=== PATIENT | female | born 1950 | race Caucasian/White ===

== ENCOUNTER → 2017-10-01 | Outpatient (CLI) | payer MEDICARE | END | disposition home or self-care (01) | LOC: PCVCCLINIC 15:31 | DX: I10 Essential (primary) hypertension (principal); E78.00 Pure hypercholesterolemia, unspecified; Z87.898 Personal history of other specified conditions; Z79.82 Long term (current) use of aspirin | CPT/HCPCS: 80061; 93005; G0463 ==

== ENCOUNTER → 2018-03-01 | Outpatient (CLI) | payer MEDICARE, OTHER ==
--- NOTE | 2018-03-02 19:22 | PCVCIMAG ---
APPROVED REPORT Study performed: 03/01/2018 11:41:21 Exam: Stress Echocardiogram Indication: Palpitations , CAD , Hypertension, Hyperlipidemia Patient Location: Echo lab Stress Nurse: Myriam Grant RN Room #: 2 Status: routine Ht: 5 ft 2 in HR: 71 bpm BP: 132/82 mmHg Rhythm: NSR Medical History Medical History: CAD non obstructive, HTN Cardiac Risk Factors: HTN Previous Cardiac Procedures: none Pretest Chest Pain Characteristics: No chest pain Exercise History: Physically active Procedure The patient underwent an Exercise Stress Test using the Javier Protocol. Blood pressure, heart rate, and EKG were monitored. An Echocardiogram was performed by solids control technician in four stages in quad fashion. At peak stress, four selected images were obtained and placed side by side with resting images for comparison. Stress Test Details Stress Test: Exercise stress testing was performed using a Javier protocol. HR Resting HR: 71 bpmMax Heart Rate (APMHR): 155 bpm Max HR Achieved: 144 bpmTarget HR (85% APMHR): 131 bpm % of APMHR: 92 Recovery HR: 78 bpm HR response to stress: Normal HR response to stress BP Resting BP: 132/82 mmHg Max BP: 160/82 mmHg Recovery BP: 148/80 mmHg ECG Resting ECG: Sinus Rhythm Stress ECG: Sinus Rhythm ST Change: Non-ischemic Arrhythmia: None Recovery ECG: Sinus Rhythm Recovery ST Change: Non-ischemic Recovery Arrhythmia: None Clinical Reason for Termination: Maximal effort Stress Symptoms: none Exercise duration: 6 min 48 sec Highest Stage Achieved: Stage 3: 3.4 mph at 14% grade. Exercise capacity: 9.4 METs Overall Exercise Capacity for Age: Normal Scale: Active Angina Score: None No complications. Stress ECG Conclusion The patient exercised according to the JAVIER protocol for 6:48 mins; achieving a work level of 9.4 METS. The resting heart rate of 71 bpm soni to a maximum heart rate of 144 bpm. This value % of the maximal, age-predicted heart rate. The resting blood pressure of 132/82mmHg, soni to a maximum blood pressure of 160/82 mmHg. The exercise test was stopped due to fatigue. Pre-Stress Echo The resting Echocardiogram showed normal left ventricular contractility with an estimated Ejection Fraction of about 55-60%. Normal wall motion in all segments on baseline images. Post-Stress Echo The stress Echocardiogram showed normal left ventricular contractility with an estimated Ejection Fraction of about 65-70%. Normal augmentation of wall motion in all segments on post stress images. Clinical No clinical or ECG evidence for ischemia. Conclusion Clinical Response: Non-ischemic Exercise Capacity: Average Stress ECG Response: Non-ischemic Stress Echo Images: Non-ischemic No clinical, EKG or echocardiographic evidence for ischemia. No echocardiographic evidence for exercise induced ischemia. Normal stress echocardiogram with maximal exercise stress. <Conclusion> No clinical, EKG or echocardiographic evidence for ischemia. No echocardiographic evidence for exercise induced ischemia. Normal stress echocardiogram with maximal exercise stress.
== END | disposition home or self-care (01) ==
LOC: PCVCIMAG 12:14
PROVIDERS: ATTEND Internal Medicine Cardiovascular Disease
DX: I10 Essential (primary) hypertension (principal); R00.2 Palpitations
CPT/HCPCS: 93325; 93351